=== PATIENT | female | born 1995 | race African-American/Black ===

== ENCOUNTER 2021-01-13 20:00 | Emergency (ER) | payer MEDICAID ==
[~2021-01-13] VITALS: Ht 157.5 cm; Wt 55.1 kg
[2021-01-13 20:10] VITALS: Ht 157.5 cm; Wt 55.1 kg
[2021-01-13 21:51] LABS: BASOPHIL % 0.3 % (0.2-1.3); PLATELET COUNT 245 x10^3mcL (179-408); RED CELL DISTRIBUTION WIDTH 12.6 % (12.3-17.7)
[2021-01-13 22:11] LABS: microscopic required? NO
[2021-01-13 22:15] LABS: urine erythrocyte NEGATIVE (NEGATIVE)
[2021-01-14 00:07] VITALS: BP 104/66
== END 2021-01-14 00:07 | disposition home or self-care (01) ==
LOC: ED 20:00
PROVIDERS: Student in an Organized Health Care Education/Training Program
DX: O26.891 Other specified pregnancy related conditions, first trimester (principal); R10.2 Pelvic and perineal pain; Z3A.11 11 weeks gestation of pregnancy
CPT/HCPCS: 87491; 87591